=== PATIENT | male | born 1950 | race Caucasian/White ===

== ENCOUNTER 2017-02-23 15:13 | Inpatient (IN) ==
[2017-02-23] MEDS ORDERED: SODIUM CHLORIDE 0.9% 250 ML IV PRN (15:51)
--- NOTE | 2017-02-23 16:27 | Event Note ---
This is an addendum to the H&P dictated by nurse practitioner Robby Diehl NP. I have seen and examined the patient and discussed the assessment and plan with her. Mr. Suarez presents with symptomatic anemia and melena. Will admit him to inpatient start him on IV pantoprazole in addition to consulting GI and cardiology. He is on Eliquis and aspirin and these will be held. Serial H&H's every 4 hours.
[2017-02-23] MEDS ORDERED: PNEUMOCOCCAL VACCINE (13 VALENT) 0.5 ML SYRINGE IM ONE (16:41)
[2017-02-23] MEDS ORDERED: PANTOPRAZOLE INJ 80 MG in SODIUM CHLORIDE 0.9% 100 ML IV ONE (17:00)
--- NOTE | 2017-02-23 17:12 | Hospitalist History & Physical ---
Assessment and Plan (1) Anemia Status: Acute Assessment and plan: Admitted to [facility]. Pt. will receive a blood tranfusion. Serial h&hs. CBC in am. Consult GI. Vivien Jones for now. Current Visit: Yes (2) CAD (coronary artery disease) Status: Chronic Current Visit: Yes (3) Hypertension Status: Acute Assessment and plan: Restart home medications Current Visit: Yes (4) CHF (congestive heart failure) Status: Acute Assessment and plan: BNP. Restart Lasix p.o. IV lasix in between blood transfusion. Current Visit: Yes (5) Hyperlipidemia Status: Acute Assessment and plan: Lipid panel. Restart medications. Current Visit: Yes (6) Carotid artery stenosis Status: Acute Current Visit: Yes (7) Chronic kidney disease, stage III (moderate) Status: Acute Current Visit: Yes History of Present Illness Chief complaint: anemia History of present illness: Mr. Suarez is a 66 year old white male patient with a history of CAD, carotid stenosis, hypertension, CABG, hyperlipidemia, and CKD that was a direct admit from Dr. Michael's office. Patient was being seen in office today for a 6 week follow-up and was noted to have a low h&h. While at his appointment, he reported that he fell on Monday and passed out. At that time the patient recalled having a low blood pressure with a systolic pain in the 90s. Patient reported that he seen his doctor (Dr. Natarajan) on Monday and received changes to his medications. The amlodipine was discontinued and his Lasix was decreased. Today in Dr. Evans's office the patient still had low blood pressure but denied passing out since Monday. Lab work was obtained from the patient at the clinic and it was discovered after the patient went home that he had an H&H of 5.5 and 17.5. The patient was notified and told to report to the hospital for admission. During the interview the patient he reported that he been having issues with dark stool for the last 2 weeks. Patient stated that his stools have been black. Patient also reports being weak, dizzy, and lightheaded. Patient denies ever having black stools before. Patient reported that he is due for a colonoscopy. The last time he had one was 3 years ago. Patient reports being scoped in the past. Patient's case was discussed with Dr. Teixeira. Patient will receive blood transfusion. GI will be consulted to assist in the patient's care. Home Medications Medication Instructions Recorded Confirmed Type Allopurinol 200 mg PO DAILY 02/23/17 02/23/17 History Apixaban [Eliquis] 5 mg PO BID 02/23/17 02/23/17 History Aspirin 81 mg PO DAILY 02/23/17 02/23/17 History Atorvastatin [Lipitor] 80 mg PO BEDTIME 02/23/17 02/23/17 History Furosemide Tab [Lasix Tab] 40 mg PO DAILY 02/23/17 02/23/17 History Metoprolol Tartrate Tab [Lopressor 50 mg PO BID 02/23/17 02/23/17 History Tab] Pantoprazole Tab [Protonix Tab] 40 mg PO DAILY 02/23/17 02/23/17 History Polyethylene Glycol Powder 17 gm PO DAILY 02/23/17 02/23/17 History [Miralax] Valsartan 40 mg PO DAILY 02/23/17 02/23/17 History Allergies Allergy/AdvReac Type Severity Reaction Status Date / Time No Known Allergies Allergy Verified 02/23/17 16:27 Medical,Surgical,& Family Hx - Medical History Cardio: History of: Hypertension Endocrine: History of: Dyslipidemia Genitourinary: History of: Genitourinary Cancer - Family History Family History: Reports;: Family Heart Disease (mother and father) - Social History Smoking Status: Former smoker Frequency of Alcohol Use: Occasionally Type of Drug Use: None Marital Status: Lives With:: Spouse Functional capacity: independent ambulation - Constitutional Constitutional: Present: weakness. Absent: fever(s) - Cardiovascular Cardiovascular: Present: dyspnea on exertion, edema. Absent: chest pain at rest - Respiratory Respiratory: Present: dyspnea on exertion. Absent: hemoptysis - Gastrointestinal Gastrointestinal: Present: melena. Absent: nausea, vomiting - Genitourinary Genitourinary: Present: other (prostate cancer) - Neurological Neurological: Present: dizziness - Psychiatric Psychiatric: Absent: confusion - Endocrine Endocrine: Present: cold intolerance - Hematologic/Lymphatic Hematologic/Lymphatic: Present: easy bleeding Exam - Constitutional Vitals: Period Temp Pulse Resp BP Sys/Martin Pulse Ox Last 24 Hr 97.8 F 77 20 116/59 92 General appearance: no acute distress, over weight - Head Head exam: Present: normal inspection, normocephalic - Eye Eye exam: Present: EOMI. Absent: periorbital swelling Pupils: Present: CATHY. Absent: fixed - Neck Neck exam: Present: normal inspection. Absent: thyromegaly - Respiratory Respiratory exam: Present: clear to auscultation bilaterally. Absent: wheezes - Cardiovascular Cardiovascular exam: Present: regular rate and rhythm - GI/Abdominal GI/Abdominal exam: Present: normal bowel sounds, soft. Absent: tenderness - Extremities Exam Extremities exam: Present: normal capillary refill, full ROM, edema - Neurological Exam Neurological exam: Present: alert, oriented X3, normal gait - Psychiatric Psychiatric exam: Present: normal affect, normal mood - Skin Skin exam: Present: normal color, warm, dry Results - Labs CBC & BMP: 02/23/17 16:33 Labs: Labs from outside facility: WBC 11.3 RBC 2.07 Hgb 5.5 HCT 17.5 Platelets 403 Calcium 8.5 Creatinine 1.81 BUN 63 Glucose 104 MAG 2.5 NA 133 K4.4 CL 98 CO2 24
[2017-02-23 17:15] LABS: Basophils % 0.1 % (0.0-0.8); Eosinophils % 0.1 % (0.00-10.9); Immature Granulocytes % 0.6 %; Immature Granulocytes Absolute 0.05 #; Lymphocytes % 11.2 % (21.2-54.2); Mean Corpuscular HGB Conc 30.2 GM/DL (32-36); Mean Corpuscular Hemoglobin 27 PG (27-34); Mean Corpuscular Volume 90.5 FL (87-102); Mean Platelet Volume 11.8 FL (9.6-12.0); Monocytes # 1.1 10*3/uL (0.11-0.8); Monocytes % 12.5 % (1.7-12.7); NRBC # 0.22 10*3/uL; Neutrophils # 6.8 10*3/uL (1.4-7.4); Neutrophils % 75.5 % (38.7-73.9); Platelet Count 345 T/CUMM (130-400); Red Blood Count 1.79 MC/CUMM (3.8-5.5); Red Cell Distribution Width 19.5 % (9.3-17.3); White Blood Count 8.9 T/CUMM (4-12)
[2017-02-23 17:24] LABS: Hemoglobin 4.9 GM/DL (14.0-18.0)
[2017-02-23 17:25] LABS: Hematocrit 16.4 VOL% (42.0-52.0)
[2017-02-23] MEDS ORDERED: FUROSEMIDE 40 MG/4 ML VIAL IV ONE (17:33)
--- NOTE | 2017-02-23 17:42 | EKG Report ---
Stationary ECG Study [facility] Test Date: 02/23/2017 5:42:20 PM Pat Name: SARAH AN Department: Room: 424 Gender: M Local Area [employer] Administrator: ZAIRA : 1950 Requested by: Robby Diehl Order Number: [id number] Reading MD: DIANNE GUZMÁN Intervals [place] Rate: 88 P: 17 CA: 180 QRS: -40 QRSD: 161 T: 135 QT: 409 QTc: 455 Interpretive Statements SINUS RHYTHM WITH OCCASIONAL VENTRICULAR PREMATURE COMPLEXES MARKED LEFT AXIS DEVIATION LEFT BUNDLE BRANCH BLOCK Electronically Signed On 02-26-17 15:05:30 CDT by DIANNE GUZMÁN [email or web address]
[2017-02-23 18:09] LABS: Magnesium 2.4 MG/DL (1.8-2.4); Potassium 3.6 MMOL/L (3.5-5.1)
--- NOTE | 2017-02-23 18:52 | XRay Report ---
Portable chest. Indication: Congestive heart failure. No previous study. The cardiac silhouette is markedly enlarged. There has been a previous median sternotomy. Cardiac hardware is in satisfactory position. There is uncoiling of the thoracic aorta which often indicates chronic hypertension. The pulmonary vasculature is normal. The lung mercado are clear. No pneumothorax or pleural effusion. Unremarkable osseous structures. Impression: Cardiomegaly. PROCEDURE INTERPRETED AT [facility] DEPARTMENT OF RADIOLOGY Final Report Signed by: Dr. Reyna Morel
[2017-02-23] MEDS: PANTOPRAZOLE INJ 200 MG in SODIUM CHLORIDE 0.9% 250 ML IV SCH (18:59)
[2017-02-23] MEDS: ATORVASTATIN 80 MG TABLET PO SCH (20:41)
[2017-02-23 21:04] LABS: Hemoglobin 4.6 GM/DL (14.0-18.0)
[2017-02-23 21:05] LABS: Hematocrit 14.7 VOL% (42.0-52.0)
[2017-02-24 01:57] LABS: Hematocrit 17.4 VOL% (42.0-52.0); Hemoglobin 5.5 GM/DL (14.0-18.0)
[2017-02-24 04:57] LABS: Basophils % 0.2 % (0.0-0.8); Eosinophils % 0.1 % (0.00-10.9); Hematocrit 21.2 VOL% (42.0-52.0); Immature Granulocytes % 0.7 %; Immature Granulocytes Absolute 0.07 #; Lymphocytes # 1.9 10*3/uL (1.4-4.0); Lymphocytes % 18.8 % (21.2-54.2); Mean Corpuscular HGB Conc 32.5 GM/DL (32-36); Mean Corpuscular Hemoglobin 29 PG (27-34); Mean Platelet Volume 11.8 FL (9.6-12.0); Monocytes # 1.5 10*3/uL (0.11-0.8); Monocytes % 14.5 % (1.7-12.7); NRBC # 0.27 10*3/uL; Neutrophils # 6.6 10*3/uL (1.4-7.4); Neutrophils % 65.7 % (38.7-73.9); Platelet Count 330 T/CUMM (130-400); Red Cell Distribution Width 17.5 % (9.3-17.3); White Blood Count 10.1 T/CUMM (4-12)
[2017-02-24 05:02] LABS: Red Blood Count 2.41 MC/CUMM (3.8-5.5)
[2017-02-24 05:03] LABS: Hemoglobin 6.9 GM/DL (14.0-18.0)
[2017-02-24 05:15] LABS: Albumin 2.8 G/DL (3.4-5.0); Free T4 (Free Thyroxine) 1.5 NG/DL (0.76-1.46); Magnesium 2.3 MG/DL (1.8-2.4); Osmolality,Calculated 292.5 MOS/KG (273-304); Potassium 3.6 MMOL/L (3.5-5.1); Risk Ratio 2.43; Thyroid Stimulating Hormone 1.01 uIU/ml (0.358-3.74); Total Protein 5.5 G/DL (6.4-8.3); VLDL CHOLESTEROL 12.2 MG/DL
--- NOTE | 2017-02-24 07:30 | Physician Query Form ---
CLICK EDIT DOCUMENT TO SELECT QUERY ANSWER --> OK --> SIGN Maeve Montanez RN, CCDS Certified Clinical Tank Builder Supervisor W) [phone] (f) [phone] [email or web address] PROVIDERS: Make your selection(s) from the choices in EACH section by typing an "x" and enter comments in the comment section. Please use your independent medical judgment in providing your response. This request does not imply that any particular answer is desired or expected. CLINICAL INDICATORS: (Providers should not edit this section) Patient was admitted with melena, "weak", "dizzy", "lightheaded", BP of 91/55, "dark stool for the last 2 weeks", HH of 4.9/16.4 and the patient was given 2 units of blood. Based on the above, could you clarify which of the following conditions you are evaluating, treating, and/or monitoring? (x ) Blood loss anemia (x) acute ( ) chronic ( ) acute on chronic ( ) Acute blood loss anemia on baseline chronic anemia ( ) Acute blood loss anemia as a complication of a procedure ( ) Iron deficiency anemia not associated with blood loss ( ) Dilutional anemia due to IV fluids ( ) Anemia due to chemotherapy ( ) Anemia due to neoplastic disease ( ) Anemia due to chronic kidney disease ( ) Pernicious anemia ( ) Aplastic anemia ( ) Hemolytic anemia ( ) immune ( ) non-immune - please specify cause: ( ) Anemia due to other condition, please specify: ( ) Clinically unable to determine COMMENTS: PLEASE ALSO DOCUMENT RESPONSE IN PROGRESS NOTES AND/OR DISCHARGE SUMMARY Use of terms such as suspected, likely, or probable (associated with a specific diagnosis that is being evaluated, monitored, or treated as if it exists) are acceptable and can be restated in the discharge summary if not ruled out. MTDD
--- NOTE | 2017-02-24 07:31 | Physician Query Form ---
CLICK EDIT DOCUMENT TO SELECT QUERY ANSWER --> OK --> SIGN Maeve Montanez RN, CCDS Certified Clinical Metal Casting Trades Worker W) [phone] (f) [phone] [email or web address] PROVIDERS: Make your selection(s) from the choices in EACH section by typing an "x" and enter comments in the comment section. Please use your independent medical judgment in providing your response. This request does not imply that any particular answer is desired or expected. CLINICAL INDICATORS: (Providers should not edit this section) Patient was admitted with melena, Acute CHF is mentioned, BNP of 1297#, CKD stage III, and the patient was treated with IV / PO Lasix. Please provide further specificity regarding CHF. ACUITY: ( ) Acute ( ) Chronic ( ) Acute on Chronic (x ) Clinically unable to determine TYPE: ( ) Systolic (HFrEF - heart failure with reduced systolic function/EF) ( ) Diastolic (HFpEF - heart failure with preserved systolic function/EF) ( ) Combined Systolic/Diastolic ( ) Other, please specify: ( x) Clinically unable to determine ( ) The patient does NOT have CHF COMMENTS: PLEASE ALSO DOCUMENT RESPONSE IN PROGRESS NOTES AND/OR DISCHARGE SUMMARY Use of terms such as suspected, likely, or probable (associated with a specific diagnosis that is being evaluated, monitored, or treated as if it exists) are acceptable and can be restated in the discharge summary if not ruled out. MTDD
[2017-02-24 08:30] LABS: Hematocrit 21.1 VOL% (42.0-52.0); Hemoglobin 6.6 GM/DL (14.0-18.0)
[2017-02-24] MEDS: VALSARTAN 80 MG TABLET PO SCH ×2 (08:38→13:34)
[2017-02-24] MEDS ORDERED: SODIUM CHLORIDE 0.9% 250 ML IV PRN (08:40)
[2017-02-24] MEDS: FUROSEMIDE 40 MG TABLET PO SCH (09:17)
[2017-02-24] MEDS: ALLOPURINOL 100 MG TABLET PO SCH (09:17)
--- NOTE | 2017-02-24 12:08 | Hospitalist Progress Note ---
Assessment and Plan - Time spent with patient Time spent with patient: Greater than 30 minutes (1) Acute blood loss anemia Status: Acute Assessment and plan: Secondary to GI bleed. GI consult. Continue transfusions for Hg >9. 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 Cardiology consulted for further recommendations. Current Visit: Yes (3) CAD (coronary artery disease) Status: Chronic Assessment and plan: Holding antiplatelets. We will continue Lipitor. Current Visit: Yes Hospitalist: Subjective Interval history: No complaints. Stool continues to remain melanotic. Exam - Constitutional Vitals: Period Temp Pulse Resp BP Sys/Martin Pulse Ox Last 24 Hr 97.8 F-98.6 F 77-97 16-20 91-129/51-67 92-98 General appearance: no acute distress - Head Head exam: Present: normocephalic, atraumatic - Eye Eye exam: Present: EOMI Pupils: Present: CATHY - ENT ENT exam: Present: normal exam - Neck Neck exam: Present: normal inspection - Respiratory Respiratory exam: Present: clear to auscultation bilaterally. Absent: rhonchi, wheezes - Cardiovascular Cardiovascular exam: Present: regular rate and rhythm. Absent: gallop, rubs, systolic murmur - GI/Abdominal GI/Abdominal exam: Present: normal bowel sounds, soft. Absent: distended, firm , guarding, tenderness, rebound - Extremities Exam Extremities exam: Present: normal inspection. Absent: calf tenderness, edema Results - Labs CBC & BMP: 02/24/17 08:13 02/24/17 04:20 Lab Results: I have reviewed the past 24 hour labs
[2017-02-24 12:18] LABS: Bilirubin,Total 1.1 MG/DL (0.2-1.0)
--- NOTE | 2017-02-24 12:40 | Gastrointestinal Consult Note ---
Assessment and Plan (1) Gastrointestinal hemorrhage with melena Status: Acute Assessment and plan: This patient was previously scoped back in 2013 when he was last placed on Eliquis and was having guaiac positive stools and hematocrit decreased down to 34%. His hematocrit is down to 14% this admission is now getting his fourth unit of blood. Unfortunately he cannot be taken to endoscopy this morning as he is already eaten solid food. We need to repeat the upper endoscopy on Monday in order to assess for an additional bleeding source and double check that this is not a cancer that is developed since last the patient was scoped in 2013. Helicobacter pylori negative gastritis was noted at that time, and the patient is been treated with Protonix twice daily ever since. We will look for AVMs and other bleeding sources as well as ruling out peptic ulcer disease and looking for cancer that might explain his level of anemia. I do not feel that with the colonoscopy done as recently as 2013 that is necessary to repeat the colonoscopy at this time. I will arrange for my on-call coverage to look in on this patient over the weekend to make sure he does not require emergency endoscopy in the interim. Current Visit: Yes (2) Personal history of colonic polyps Status: Acute Assessment and plan: The patient has a history of adenomas in the ascending and sigmoid regions of his colon. Blood loss for the rectum is noted to be black consistent with upper GI bleeding. I do not anticipate requiring a colonoscopy at this time, but upper endoscopy will be repeated on 02/27/17 at around 0700 in the morning. Current Visit: Yes (3) Acute posthemorrhagic anemia Status: Acute Assessment and plan: Again, we are arranging for upper endoscopy to occur on 02/27/17 at 7 AM. The patient should be given Protonix in the interim twice daily, start MiraLAX to help out with his underlying constipation. Transfuse if the patient's hematocrit drops below your parameters. Risks of the procedure include but are not limited to: Bleeding, infection, perforation, cardiac and pulmonary compromise. Observe for stability over the weekend. Current Visit: Yes History of Present Illness Chief complaint: 2 weeks worth of melena, HCT of 14%, history of gastritis/ colon polyps History of present illness: Mr. Suarez is a 66 year old male who has a history of black stools over the last 2 weeks or so. He has some mild epigastric tenderness and is complaining mostly of constipation. He states that he has approximately 2-3 bowel movements per day which have been dark to black with increasing fatigue and syncope that occurred 5 days ago on Monday. When he came into the hospital initially on 02/23/17 he was noted to have a hematocrit of 16.4 with a hemoglobin of 4.9. Unfortunately this dropped down to 14.7 and 4.6 on midnight this morning and is spontaneously up to 21.2%. He is gotten 3 unit transfused but is due to get another 1 unit for a total of 4. His hematocrit is currently up to 21.1% and he is feeling a good deal better. He has not had any vomiting he has poor appetite but only minimal nausea at this time. He has been using MiraLAX recently at home for his underlying constipation. Is been diagnosed by Dr. Avalos is having prostate cancer and has undergone 5 radiation treatments and is now getting hormonal therapy. This patient has been referred to me back in February 2014 when he had guaiac positive stools in addition to a decreased hematocrit to 34% at that time, interestingly this was also initiated after the patient had started on Eliquis similar to this visit. The Eliquis had to be stopped and it is only been restarted recently. He underwent both EGD on and colonoscopy on 03/17/14. EGD demonstrated diffuse gastritis with erosive qualities down in the antrum and erosive duodenitis with a 2 mm erosion, incidental duodenal diverticulum noted, no gross evidence of esophagitis. The colonoscopy demonstrated 3 polyps in the ascending and one polyp in the sigmoid there were all removed by hot biopsy, diverticulosis was noted in the left side of the colon it was thought to be colitis present but this was likely just prep artifact as only normal tissue was seen aside from the adenomas. It is the gastritis that is likely the source the patient's current bleeding given the black stool seen on physical examination and per the patient's history. We will check the patient's upper endoscopy again on Monday given the gravity of the blood loss and reaffirmed but no cancer is present nor peptic ulcer disease. The patient had been followed in [facility] clinic for number of years after his left-sided CEA surgery done by Dr. Hampton at [facility] and triple-vessel CABG done by Dr. Onofre at [facility]. The patient has a history of an ejection fraction of only 25% and had an AICD implanted by Dr. Gonzalez in the past. Interestingly , the patient has been on Protonix 40 mg twice daily since last scoped in 2013 by report. Home Medications Medication Instructions Recorded Confirmed Type Allopurinol 200 mg PO DAILY 02/23/17 02/23/17 History Apixaban [Eliquis] 5 mg PO BID 02/23/17 02/23/17 History Aspirin 81 mg PO DAILY 02/23/17 02/23/17 History Atorvastatin [Lipitor] 80 mg PO BEDTIME 02/23/17 02/23/17 History Furosemide Tab [Lasix Tab] 40 mg PO DAILY 02/23/17 02/23/17 History Metoprolol Tartrate Tab [Lopressor 50 mg PO BID 02/23/17 02/23/17 History Tab] Pantoprazole Tab [Protonix Tab] 40 mg PO DAILY 02/23/17 02/23/17 History Polyethylene Glycol Powder 17 gm PO DAILY 02/23/17 02/23/17 History [Miralax] Valsartan 40 mg PO DAILY 02/23/17 02/23/17 History Allergies Allergy/AdvReac Type Severity Reaction Status Date / Time No Known Allergies Allergy Verified 02/23/17 16:27 Medical,Surgical,& Family Hx - Medical History Cardio: History of: Hypertension Endocrine: History of: Dyslipidemia Genitourinary: History of: Genitourinary Cancer - Family History Family History: Reports;: Family Heart Disease (mother and father) - Social History Smoking Status: Former smoker Frequency of Alcohol Use: Occasionally Type of Drug Use: None Review of systems: Constitutional: Denies fever, chills, and vomiting but some nausea noted Eyes: Denies dry eyes, and scleral icterus HENT: Denies headaches Cardiovascular: Denies acute chest pain and claudication Respiratory: Mild shortness of breath, without wheezing, difficulty breathing, and also denies cough Gastrointestinal: As noted in the HPI Genitourinary: Denies dysuria and hematuria Neurologic: Denies vision loss, and loss of sensation Musculoskeletal: Denies joint swelling, however he does have some joint stiffness, and muscular weakness Psychiatric: Denies depression and parmjit symptoms Heme-Lymph: Denies easy bruising, lymph node enlargement or tenderness, night sweats, excessive bleeding Allergies-immunologic: Denies pruritus and rhinorrhea Exam - Constitutional Vitals: Period Temp Pulse Resp BP Sys/Martin Pulse Ox Last 24 Hr 97.8 F-98.6 F 77-97 16-20 91-129/51-67 92-98 General appearance: no acute distress Exam: Constitutional: Well-developed, well-nourished, alert, and in no acute distress Head and face: Head: Normocephalic atraumatic Eyes: Conjunctiva without injection, no gross scleral icterus, pupils equal and round bilaterally Ears: Intact to conversation in both ears Nose: External appearance is normal, nares patent Mouth: Oral mucous membranes moist without erythema dentition noted to be without erosion in the lower arch, upper arch is noted to be edentulous Neck: Normal appearance, no masses or tenderness, trachea midline Thyroid: Gland midline and appropriate size for age Respiratory: Normal respiratory effort, clear to auscultation without wheezes, rhonchi or rales Cardiovascular: Regular rate and rhythm, normal S1, S2, the exam is without rubs, murmurs or gallops. Gastrointestinal: Nontender to palpation, in any quadrant, normal active bowel sounds, tone normal without rigidity or guarding, no masses present, no hepatomegaly, no spleen tip felt. Small internal and external hemorrhoids are palpated, stool was chestnut brown and grossly guaiac positive. Lymphatic: Neck without adenopathy, axilla without lymphadenopathy present Musculoskeletal: Right and left lower extremities with trace evidence of edema Skin and subcutaneous tissue: No rashes or ulcerations noted, normal skin turgor, digits and nails without clubbing/cyanosis/deformities. Neurologic: The patient is grossly oriented to person place and time, cranial nerves show tongue movements are normal with normal tongue extrusion midline, light touch sensation is intact. Psychiatric: No hallucinations or delusions are present, does not appear depressed Results - Labs CBC & BMP: 02/24/17 08:13 02/24/17 04:20
--- NOTE | 2017-02-24 14:58 | Cardiology Consult Note ---
Gianfranco Fam Vanessa, RN, am scribing for, and in the presence of, Tripp Santos MD 14:58. Assessment and Plan - Time spent with patient Time spent with patient: Greater than 30 minutes (due to assessment, planning, documentation, and medication review) (1) Carotid artery stenosis Status: Chronic Assessment and plan: SEE PLAN OF CARE LISTED BELOW. Current Visit: Yes (2) Chronic kidney disease, stage III (moderate) Status: Chronic Assessment and plan: SEE PLAN OF CARE LISTED BELOW. Current Visit: Yes (3) Hyperlipidemia Status: Chronic Assessment and plan: SEE PLAN OF CARE LISTED BELOW. Current Visit: Yes (4) Hypertension Status: Chronic Assessment and plan: SEE PLAN OF CARE LISTED BELOW. Current Visit: Yes (5) CAD (coronary artery disease) Status: Chronic Assessment and plan: SEE PLAN OF CARE LISTED BELOW. Current Visit: Yes (6) Acute blood loss anemia Status: Acute Assessment and plan: SEE PLAN OF CARE LISTED BELOW. Current Visit: Yes (7) CHF (congestive heart failure) Status: Chronic Assessment and plan: SEE PLAN OF CARE LISTED BELOW. Current Visit: Yes (8) Chronic anticoagulation Status: Chronic Assessment and plan: SEE PLAN OF CARE LISTED BELOW. Current Visit: Yes (9) Personal history of colonic polyps Status: Chronic Assessment and plan: SEE PLAN OF CARE LISTED BELOW. Current Visit: Yes History of Present Illness - Data of Consult Patient: known to practice within the last 3 years Consult date: 02/24/17 Requesting Physician: Kelly Teixeira - Consult Narrative Reason for consult: GI bleeding currently on antiplatelet therapy History of present illness: PRIMARY REFERENCE LIBRARIAN: DR. EVANS PCP: DR. GOLDSTEIN CARDIOLOGY CONSULT NOTE: GI BLEED, ANTIPLATELET THERAPY Mr. Suarez is a 66 year old male with risk factors significant for: Age, hypertension, dyslipidemia, personal history and family history of premature CAD , and he is a former smoker. Past medical history includes apical thrombus, carotid artery disease, and he has had previous carotid artery endarterectomy. He also has had previous coronary artery bypass grafting, congestive heart failure, and ischemic cardiomyopathy with most recent ejection fraction of 13% and is status post AICD implant per Dr. Gonzalez. Most recent echocardiogram on December 29 with severely decreased global systolic function and ejection fraction 13%, hypokinesis of inferior segment and akinesis of anteroseptal segment, mild to moderate MR, TR, and aortic regurgitation. He was seen by Dr. Dr. Burns in clinic on February 23 complaining of weakness, dyspnea on exertion, and recent syncopal episode after a fall with reported systolic BP at home in the 90s. Prior to visit, he had been seen by Dr. Goldstein on Monday and amlodipine was discontinued with a decrease in Lasix dosage. His ICD was interrogated by Dr. Gomez at this time and noted to have normal DDD function, no atrial fib, and occasional NSVT's. Patient was also noted to have worsening chest congestion over the past month with a decrease in his activity and average heart rate increasing in the same time. Lab work drawn the day revealed H&H 5.5/17.5, creatinine 1.8, potassium 4.4, BNP 1260. He was directly admitted from Dr. Evans's office to [facility] floor per hospital medicine service. Since then, patient reports he has also been experiencing melena or approximately the past 2 weeks with his associated weakness, dizziness, and lightheadedness. Blood work drawn after admission, and repeat H&H 4.9/16.4. Patient denies history of prior GI bleeding. He has received 2 units PRBCs, and is receiving 2 additional units PRBCs for a total of 4 units now as his repeat H&H this morning was 6.6/21.1. Cardiology consulted as patient is on Eliquis therapy for history of LV thrombus and now presents with GI bleeding. Gastroenterology has also been consulted. Last dose of Eliquis was February 23, and antiplatelet is currently being held. Patient is awake and alert this morning in no acute distress. No active chest discomfort or shortness of breath. He continues to have melena and some epigastric tenderness. He has recently also been diagnosed with prostate cancer , has undergone 5 radiation treatments with current hormone therapy, and complains he has had some constipation recently. It is noted in the past that patient has previously taken Eliquis in 2013, had positive hemoccults, and EGD per Dr. Hernandez showed diffuse gastritis with erosive qualities but no evidence of esophagitis. C-scope with colon polyps and diverticulosis of the left colon. Patient to be set up EGD on Monday. SBP 130-145 mmHg. 12 lead EKG with sinus rhythm, rare PVC, chronic LBBB. Chest x-ray without ivy pulmonary edema. This patient has a history of melena for the past several weeks with a significant drop in his hematocrit. He is on Eliquis for an LV apical thrombus. He has a history of coronary disease with an ischemic cardiomyopathy and our plan at this point will be to stop his Eliquis and aspirin as outlined by Dr. Evans and continue close observation and follow-up. CC: Kelly Teixeira MD - Home Medications and Allergies Home Medications: Home Medications Medication Instructions Recorded Confirmed Type Allopurinol 200 mg PO DAILY 02/23/17 02/23/17 History Apixaban [Eliquis] 5 mg PO BID 02/23/17 02/23/17 History Aspirin 81 mg PO DAILY 02/23/17 02/23/17 History Atorvastatin [Lipitor] 80 mg PO BEDTIME 02/23/17 02/23/17 History Furosemide Tab [Lasix Tab] 40 mg PO DAILY 02/23/17 02/23/17 History Metoprolol Tartrate Tab [Lopressor 50 mg PO BID 02/23/17 02/23/17 History Tab] Pantoprazole Tab [Protonix Tab] 40 mg PO DAILY 02/23/17 02/23/17 History Polyethylene Glycol Powder 17 gm PO DAILY 02/23/17 02/23/17 History [Miralax] Valsartan 40 mg PO DAILY 02/23/17 02/23/17 History Allergies/Adverse Reactions: Allergies Allergy/AdvReac Type Severity Reaction Status Date / Time No Known Allergies Allergy Verified 02/23/17 16:27 - Constitutional Constitutional: Present: as per HPI - EENT Eyes: Present: as per HPI Ears: Present: as per HPI Nose, mouth and throat: Present: as per HPI - Cardiovascular Cardiovascular: Present: as per HPI - Respiratory Respiratory: Present: as per HPI - Gastrointestinal Gastrointestinal: Present: as per HPI - Genitourinary Genitourinary: Present: as per HPI - Musculoskeletal Musculoskeletal: Present: as per HPI - Neurological Neurological: Present: as per HPI - Psychiatric Psychiatric: Present: as per HPI - Endocrine Endocrine: Present: as per HPI - Hematologic/Lymphatic Hematologic/Lymphatic: Present: as per HPI Medical,Surgical,& Family Hx - Medical History Cardio: History of: Cerebrovascular Disease, CHF, CAD, Hypertension Endocrine: History of: Dyslipidemia No history of: Thyroid Disorder Genitourinary: History of: Genitourinary Cancer Gastrointestinal: History of: GERD, Gastrointestinal Bleed, Polyps, GI Problems Hematology: History of: Anemia, Bleeding Problems, Clotting Problems No history of: Blood Transfusion Reaction - Surgical History Cardiac Surgeries: Sugical HX of: Cardiac Catheterization, Cardiac Surgery, Carotid Endarterectomy HEENT Surgeries: Surgical HX of: Carotid Endarterectomy Abdominal Surgeries: Surgical HX of: Colonoscopy, EGD - Family History Family History: Reports;: Family Heart Disease (mother and father) - Social History Smoking Status: Former smoker Frequency of Alcohol Use: Occasionally Type of Drug Use: None Physical Examination Vital Signs Temp Pulse Resp BP Pulse Ox 97.8 F 77 20 116/59 92 L 02/23/17 15:56 02/23/17 15:56 02/23/17 15:56 02/23/17 15:56 02/23/17 15:56 General: Present: Other (overweight) HEENT: Present: PERRL, Normocephaly, Mucus Membranes Moist Neck: Present: Supple Neck, Midline Trachea, No JVD/HJR, No Masses, No Bruit Cardiac: Present: Reg Rate and Rhythm, No Murmur Lungs: Present: Clear Ascult./Percussion, No Wheeze, Rales, Rhonchi Neuro: Present: Grossly Intact. Absent: Numbness, Weakness, Resting Tremor, Essential Tremor Abdomen: Present: Soft, Active Bowel Sounds, No Masses, No Pulsations/Bruits, Tender (mild epigastric tenderness). Absent: Firm Skin: Present: Clear. Absent: Rash, Suspicious Lesions Musculoskeletal: Present: Normal Range of Motion Extremities: Present: No Clubbing, No Cyanosis, Edema (trace BLE's, non pitting) , Capillary Refill (normal) Result/EKG - Labs CBC & BMP: 02/24/17 08:13 02/24/17 04:20 Lab Results: I have reviewed the past 24 hour labs Labs: Laboratory Results - last 24 hr 02/23/17 02/23/17 02/23/17 16:33 16:33 16:33 WBC 8.9 RBC 1.79 L Hgb 4.9 L* Hct 16.4 L* MCV 90.5 MCH 27 MCHC 30.2 L RDW 19.5 H Plt Count 345 MPV 11.8 Neut % (Auto) 75.5 H Lymph % (Auto) 11.2 L Cloud % (Auto) 12.5 Eos % (Auto) 0.1 Baso % (Auto) 0.1 Neut # (Auto) 6.8 Lymph # (Auto) 1.0 L Cloud # (Auto) 1.1 H Eos # (Auto) 0.0 Baso # (Auto) 0.0 Immature Gran % 0.6 Nucleated RBC % 2.5 Immature Gran # 0.05 Nucleated RBCs # 0.22 Sodium 136 Potassium 3.6 Chloride 100 Carbon Dioxide 24 Anion Gap 15.6 H BUN 63 H Creatinine 1.90 H GFR Calculation 42 BUN/Creatinine Ratio 33.00 H Glucose 96 Calculated Osmolality 289.0 Calcium 8.0 L Magnesium 2.4 Total Bilirubin AST ALT Alkaline Phosphatase B-Natriuretic Peptide Total Protein Albumin Globulin Albumin/Globulin Ratio Triglycerides Cholesterol LDL Cholesterol VLDL Cholesterol HDL Cholesterol Heart Disease Risk Ratio Free T4 TSH 3rd Generation Blood Type A POSITIVE Antibody Screen Crossmatch Blood Bank Comment 02/23/17 02/23/17 02/23/17 16:33 18:30 20:47 WBC RBC Hgb 4.6 L* Hct 14.7 L* MCV MCH MCHC RDW Plt Count MPV Neut % (Auto) Lymph % (Auto) Cloud % (Auto) Eos % (Auto) Baso % (Auto) Neut # (Auto) Lymph # (Auto) Cloud # (Auto) Eos # (Auto) Baso # (Auto) Immature Gran % Nucleated RBC % Immature Gran # Nucleated RBCs # Sodium Potassium Chloride Carbon Dioxide Anion Gap BUN Creatinine GFR Calculation BUN/Creatinine Ratio Glucose Calculated Osmolality Calcium Magnesium Total Bilirubin AST ALT Alkaline Phosphatase B-Natriuretic Peptide 1297 H Total Protein Albumin Globulin Albumin/Globulin Ratio Triglycerides Cholesterol LDL Cholesterol VLDL Cholesterol HDL Cholesterol Heart Disease Risk Ratio Free T4 TSH 3rd Generation Blood Type A POSITIVE Antibody Screen Negative Crossmatch See Detail Blood Bank Comment 02/24/17 02/24/17 02/24/17 00:23 04:20 04:21 WBC 10.1 RBC 2.41 L D Hgb 5.5 L* 6.9 L D Hct 17.4 L* D 21.2 L MCV 88.0 MCH 29 MCHC 32.5 RDW 17.5 H Plt Count 330 MPV 11.8 Neut % (Auto) 65.7 Lymph % (Auto) 18.8 L Cloud % (Auto) 14.5 H Eos % (Auto) 0.1 Baso % (Auto) 0.2 Neut # (Auto) 6.6 Lymph # (Auto) 1.9 Cloud # (Auto) 1.5 H Eos # (Auto) 0.0 Baso # (Auto) 0.0 Immature Gran % 0.7 Nucleated RBC % 2.7 Immature Gran # 0.07 Nucleated RBCs # 0.27 Sodium 139 Potassium 3.6 Chloride 103 Carbon Dioxide 24 Anion Gap 15.6 H BUN 56 H Creatinine 1.70 H GFR Calculation 48 BUN/Creatinine Ratio 32.00 H Glucose 105 Calculated Osmolality 292.5 Calcium 8.0 L Magnesium 2.3 Total Bilirubin 1.10 AST 214 H ALT 164 H Alkaline Phosphatase 78 B-Natriuretic Peptide Total Protein 5.5 L Albumin 2.8 L Globulin 2.7 Albumin/Globulin Ratio 1.0 L Triglycerides 61 Cholesterol 73 LDL Cholesterol 45.0 VLDL Cholesterol 12.2 HDL Cholesterol 30 L Heart Disease Risk Ratio 2.43 Free T4 1.50 H TSH 3rd Generation 1.010 Blood Type Antibody Screen Crossmatch Blood Bank Comment 02/24/17 02/24/17 04:21 08:13 WBC RBC Hgb 6.6 L Hct 21.1 L MCV MCH MCHC RDW Plt Count MPV Neut % (Auto) Lymph % (Auto) Cloud % (Auto) Eos % (Auto) Baso % (Auto) Neut # (Auto) Lymph # (Auto) Cloud # (Auto) Eos # (Auto) Baso # (Auto) Immature Gran % Nucleated RBC % Immature Gran # Nucleated RBCs # Sodium Potassium Chloride Carbon Dioxide Anion Gap BUN Creatinine GFR Calculation BUN/Creatinine Ratio Glucose Calculated Osmolality Calcium Magnesium Total Bilirubin AST ALT Alkaline Phosphatase B-Natriuretic Peptide Total Protein Albumin Globulin Albumin/Globulin Ratio Triglycerides Cholesterol LDL Cholesterol VLDL Cholesterol HDL Cholesterol Heart Disease Risk Ratio Free T4 TSH 3rd Generation Blood Type Cancelled Antibody Screen Cancelled Crossmatch See Detail Blood Bank Comment Cancelled - Diagnostic Findings Procedure: Chest x-ray: image reviewed by me, report reviewed by me - EKG EKG results: interpreted by me, no acute changes EKG shows: sinus rhythm Tom Fam Wesley, MD, personally performed the services described in this documentation, ascribed by Kalyn Medel RN in my presence, and it is both accurate and complete [id number] .
[2017-02-24 16:34] LABS: Hematocrit 26.2 VOL% (42.0-52.0)
[2017-02-24 16:36] LABS: Hemoglobin 8.6 GM/DL (14.0-18.0)
[2017-02-24 21:21] LABS: Hematocrit 24.6 VOL% (42.0-52.0); Hemoglobin 8.1 GM/DL (14.0-18.0)
[2017-02-24] MEDS: ATORVASTATIN 80 MG TABLET PO SCH (21:22)
[2017-02-25 06:21] LABS: Basophils % 0.4 % (0.0-0.8); Eosinophils # 0.1 10*3/uL (0.0-0.87); Eosinophils % 0.9 % (0.00-10.9); Hematocrit 23.5 VOL% (42.0-52.0); Hemoglobin 7.6 GM/DL (14.0-18.0); Immature Granulocytes % 0.9 %; Immature Granulocytes Absolute 0.07 #; Lymphocytes # 0.9 10*3/uL (1.4-4.0); Lymphocytes % 11.1 % (21.2-54.2); Mean Corpuscular HGB Conc 32.3 GM/DL (32-36); Mean Corpuscular Hemoglobin 28 PG (27-34); Mean Corpuscular Volume 87.4 FL (87-102); Mean Platelet Volume 11.4 FL (9.6-12.0); Monocytes # 1.1 10*3/uL (0.11-0.8); Monocytes % 14.6 % (1.7-12.7); NRBC # 0.26 10*3/uL; Neutrophils # 5.6 10*3/uL (1.4-7.4); Neutrophils % 72.1 % (38.7-73.9); Platelet Count 271 T/CUMM (130-400); Red Blood Count 2.69 MC/CUMM (3.8-5.5); Red Cell Distribution Width 17.1 % (9.3-17.3); White Blood Count 7.7 T/CUMM (4-12)
[2017-02-25 07:13] LABS: Calcium 8.1 MG/DL (8.5-10.1); Magnesium 2.3 MG/DL (1.8-2.4); Osmolality,Calculated 287.3 MOS/KG (273-304); Potassium 3.7 MMOL/L (3.5-5.1)
[2017-02-25] MEDS: PANTOPRAZOLE INJ 200 MG in SODIUM CHLORIDE 0.9% 250 ML IV SCH ×2 (07:46→20:26)
[2017-02-25] MEDS ORDERED: SODIUM CHLORIDE 0.9% 250 ML IV PRN (08:33)
--- NOTE | 2017-02-25 08:41 | Cardiology Progress Note ---
Assessment and Plan (1) Carotid artery stenosis Status: Chronic Assessment and plan: SEE PLAN OF CARE LISTED BELOW. Current Visit: Yes (2) Chronic kidney disease, stage III (moderate) Status: Chronic Assessment and plan: SEE PLAN OF CARE LISTED BELOW. Current Visit: Yes (3) Hyperlipidemia Status: Chronic Assessment and plan: SEE PLAN OF CARE LISTED BELOW. Current Visit: Yes (4) Hypertension Status: Chronic Assessment and plan: SEE PLAN OF CARE LISTED BELOW. Current Visit: Yes (5) CAD (coronary artery disease) Status: Chronic Assessment and plan: SEE PLAN OF CARE LISTED BELOW. Current Visit: Yes (6) Acute blood loss anemia Status: Acute Assessment and plan: SEE PLAN OF CARE LISTED BELOW. Current Visit: Yes (7) CHF (congestive heart failure) Status: Chronic Assessment and plan: SEE PLAN OF CARE LISTED BELOW. Current Visit: Yes (8) Chronic anticoagulation Status: Chronic Assessment and plan: SEE PLAN OF CARE LISTED BELOW. Current Visit: Yes (9) Personal history of colonic polyps Status: Chronic Assessment and plan: SEE PLAN OF CARE LISTED BELOW. Current Visit: Yes Cardiology - PN: Subj Interval history: Patient's counts continue dropping. He is off of his Eliquis and we are following his counts. Cardiac berumen he is stable without complaints related to orthopnea or PND. Exam (Progress Note) - Constitutional Vitals: Period Temp Pulse Resp BP Sys/Martin Pulse Ox Last 24 Hr 97.4 F-98.9 F 86-99 18-20 101-145/51-79 95-99 Exam: General:no acute distress. alert and oriented, mood and affect are normal HEENT: no new lesions, sclerae are clear, mouth and pharynx benign Neck: supple, trachea midline, no JVD noted Lungs: no rales ronchi or wheeze is noted. pt comfortable without accesory muscle use to assist with breathing CV: RRR no murmur rub or gallop is noted. Abd: soft and nontender, BSNA, no masses. Ext: no cyanosis, clubbing or edema Neuro: grossly intact without focal neurologic deficit. Result/EKG - Labs CBC & BMP: 02/25/17 04:27 02/25/17 04:26 Labs: Laboratory Results - last 24 hr 02/24/17 02/24/17 02/24/17 04:20 04:21 16:14 WBC RBC Hgb 8.6 L D Hct 26.2 L MCV MCH MCHC RDW Plt Count MPV Neut % (Auto) Lymph % (Auto) Gillespie % (Auto) Eos % (Auto) Baso % (Auto) Neut # (Auto) Lymph # (Auto) Gillespie # (Auto) Eos # (Auto) Baso # (Auto) Immature Gran % Nucleated RBC % Immature Gran # Nucleated RBCs # Sodium Potassium Chloride Carbon Dioxide Anion Gap BUN Creatinine GFR Calculation BUN/Creatinine Ratio Glucose Calculated Osmolality Calcium Magnesium Total Bilirubin 1.10 H Blood Type Cancelled Antibody Screen Cancelled Crossmatch See Detail Blood Bank Comment Cancelled 02/24/17 02/25/17 02/25/17 20:24 04:26 04:27 WBC 7.7 RBC 2.69 L Hgb 8.1 L 7.6 L Hct 24.6 L 23.5 L MCV 87.4 MCH 28 MCHC 32.3 RDW 17.1 Plt Count 271 MPV 11.4 Neut % (Auto) 72.1 Lymph % (Auto) 11.1 L Gillespie % (Auto) 14.6 H Eos % (Auto) 0.9 Baso % (Auto) 0.4 Neut # (Auto) 5.6 Lymph # (Auto) 0.9 L Gillespie # (Auto) 1.1 H Eos # (Auto) 0.1 Baso # (Auto) 0.0 Immature Gran % 0.9 Nucleated RBC % 3.4 Immature Gran # 0.07 Nucleated RBCs # 0.26 Sodium 141 Potassium 3.7 Chloride 105 Carbon Dioxide 27 Anion Gap 12.7 BUN 35 H Creatinine 1.30 GFR Calculation 66 BUN/Creatinine Ratio 26.00 H Glucose 88 Calculated Osmolality 287.3 Calcium 8.1 L Magnesium 2.3 Total Bilirubin Blood Type Antibody Screen Crossmatch Blood Bank Comment
[2017-02-25] MEDS: ALLOPURINOL 100 MG TABLET PO SCH (09:22)
[2017-02-25] MEDS: VALSARTAN 80 MG TABLET PO SCH ×2 (09:23→12:07)
[2017-02-25] MEDS: FUROSEMIDE 40 MG TABLET PO SCH (09:23)
--- NOTE | 2017-02-25 10:04 | Hospitalist Progress Note ---
Assessment and Plan - Time spent with patient Time spent with patient: Greater than 30 minutes (1) Acute blood loss anemia Status: Acute Assessment and plan: Secondary to GI bleed. GI consult. Continue transfusions for Hg >9. We will transfuse 2 units. 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 Cardiology consulted for further recommendations. Current Visit: Yes (3) CAD (coronary artery disease) Status: Chronic Assessment and plan: Holding antiplatelets. We will continue Lipitor. Current Visit: Yes Hospitalist: Subjective Interval history: No complaints overnight events. Patient's hemoglobin was 7.6 this morning. He denies having any bowel movement since admission. Exam - Constitutional Vitals: Period Temp Pulse Resp BP Sys/Martin Pulse Ox Last 24 Hr 97.4 F-98.9 F 86-99 18-20 101-145/54-79 95-99 General appearance: no acute distress - Head Head exam: Present: normocephalic, atraumatic - Eye Eye exam: Present: EOMI Pupils: Present: CATHY - ENT ENT exam: Present: normal exam - Neck Neck exam: Present: normal inspection - Respiratory Respiratory exam: Present: clear to auscultation bilaterally. Absent: rhonchi, wheezes - Cardiovascular Cardiovascular exam: Present: regular rate and rhythm. Absent: gallop, rubs, systolic murmur - GI/Abdominal GI/Abdominal exam: Present: normal bowel sounds, soft. Absent: distended, firm , guarding, tenderness, rebound - Extremities Exam Extremities exam: Present: normal inspection. Absent: calf tenderness, edema Results - Labs CBC & BMP: 02/25/17 04:27 02/25/17 04:26 Lab Results: I have reviewed the past 24 hour labs
[2017-02-25] MEDS: ATORVASTATIN 80 MG TABLET PO SCH (20:26)
[2017-02-26 05:30] LABS: Basophils % 0.3 % (0.0-0.8); Eosinophils # 0.1 10*3/uL (0.0-0.87); Eosinophils % 1.4 % (0.00-10.9); Hematocrit 27.4 VOL% (42.0-52.0); Hemoglobin 8.8 GM/DL (14.0-18.0); Immature Granulocytes % 0.3 %; Immature Granulocytes Absolute 0.02 #; Lymphocytes # 1.4 10*3/uL (1.4-4.0); Lymphocytes % 19.4 % (21.2-54.2); Mean Corpuscular HGB Conc 32.1 GM/DL (32-36); Mean Corpuscular Hemoglobin 28 PG (27-34); Mean Platelet Volume 11.2 FL (9.6-12.0); Monocytes # 0.9 10*3/uL (0.11-0.8); Monocytes % 13.5 % (1.7-12.7); Neutrophils # 4.5 10*3/uL (1.4-7.4); Neutrophils % 65.1 % (38.7-73.9); Platelet Count 255 T/CUMM (130-400); Red Blood Count 3.15 MC/CUMM (3.8-5.5); Red Cell Distribution Width 16.8 % (9.3-17.3)
[2017-02-26 05:57] LABS: Magnesium 2.2 MG/DL (1.8-2.4); Potassium 3.4 MMOL/L (3.5-5.1)
[2017-02-26] MEDS: ALLOPURINOL 100 MG TABLET PO SCH (09:07)
[2017-02-26] MEDS: FUROSEMIDE 40 MG TABLET PO SCH (09:07)
[2017-02-26] MEDS: VALSARTAN 80 MG TABLET PO SCH (09:07)
--- NOTE | 2017-02-26 10:35 | Gastrointestinal Progress Note ---
Assessment and Plan - Time spent with patient Time spent with patient: Greater than 30 minutes (1) Gastrointestinal hemorrhage with melena Status: Acute Current Visit: Yes (2) Acute blood loss anemia Status: Acute Current Visit: Yes (3) Other specified counseling Status: Acute Current Visit: Yes Gastroenterology - PN: Subj Interval history: PLEASE NOTE -- automatic citation of patient information is unavoidable in this electronic note. I have made a reasonable effort to review the information cited , but it is not a part of my evaluation, impression, or recommendation unless specifically discussed in the dictated text that follows. As well, voice recognition software was used in the creation of this clinical note. Reasonable effort was made to identify and correct gross errors. Despite proofreading, errors in vehicle technician may be present, including nonsense verbiage at times. If you encounter such an error, please contact me at for discussion and correction. -- Cherise Chief complaint: melena Subjective: the patient is a 66-year-old male seen for follow-up of melena with post hemorrhagic anemia. The patient required two additional units of packed red blood cells yesterday. One bowel movement was reported overnight with no obvious blood. The patient is tolerating a clear liquid diet with no nausea or vomiting. Vital signs have remained stable. Medications: allopurinol, Lipitor, Lasix, Protonix, Diovan Review of Symptoms: 12 point review of symptoms was negative except as noted above Physical examination: Vital Signs: Current vital signs reviewed. General Appearance: lying in bed. Comfortable. No apparent distress. Head: Normocephalic. Eyes: no scleral icterus. No scleral injection. No conjunctival pallor. Oral Cavity: Odor of breath was normal. No drooling was observed. Lips showed no abnormalities. Lungs: Respiration rhythm and depth was normal. Cardiovascular: Heart rate and rhythm were normal. Abdomen: abdomen was not distended. Abdominal auscultation revealed no abnormalities. Ascites was not discovered. Abdominal palpation revealed no tenderness and no hepatosplenomegaly. Musculoskeletal System: musculoskeletal system was grossly normal. Neurological: level of consciousness was normal. Speech was normal. No coordination/cerebellum abnormalities were noted. Skin: Gen. appearance was normal. Color and pigmentation were normal. No skin lesions were appreciated. Laboratory: and hematocrit 23.5 --> transfusion --> 27.4, BUN 21, creatinine 1.0 Radiology: reviewed Impressions: 1. Gastrointestinal bleeding, indeterminate -- the patient has required a total of six units of packed red blood cells since admission. We will plan upper endoscopy tomorrow. If no finding, the patient may need to undergo further endoscopic evaluation. I will leave this to Dr. Hernandez's discretion. The patient should remain on proton pump inhibitor. 2. Post hemorrhagic anemia -- the patient has required transfusion but remained hemodynamically stable. As discussed, we will pursue endoscopic evaluation tomorrow. 3. Other specified counseling -- Patient seen for greater than 30 minutes. Greater than 50% of this time was spent counseling regarding differential diagnosis, likely diagnosis,, diagnostic and therapeutic options, risks, benefits, and alternatives to procedures and medications, informed consent, and plan of care generally. Patient has expressed understanding and wishes to proceed. Recommendations: -- aggressive crystalloid resuscitation -- serial hemoglobin and hematocrit monitoring -- transfusion as indicated -- upper endoscopy tomorrow -- if no finding, further endoscopic evaluation at Dr. Hernandez's discretion -- thank you for consultation. Dr. Hernandez will resume G.I. care for this patient tomorrow. Exam (Progress Note) - Constitutional Vitals: Period Temp Pulse Resp BP Sys/Martin Pulse Ox Last 24 Hr 96.7 F-99.1 F 88-105 16-20 105-144/55-79 96-98 Results - Labs CBC & BMP: 02/26/17 05:02 02/26/17 05:02
--- NOTE | 2017-02-26 11:06 | Cardiology Progress Note ---
Assessment and Plan (1) Carotid artery stenosis Status: Chronic Assessment and plan: SEE PLAN OF CARE LISTED BELOW. Current Visit: Yes (2) Chronic kidney disease, stage III (moderate) Status: Chronic Assessment and plan: SEE PLAN OF CARE LISTED BELOW. Current Visit: Yes (3) Hyperlipidemia Status: Chronic Assessment and plan: SEE PLAN OF CARE LISTED BELOW. Current Visit: Yes (4) Hypertension Status: Chronic Assessment and plan: SEE PLAN OF CARE LISTED BELOW. Current Visit: Yes (5) CAD (coronary artery disease) Status: Chronic Assessment and plan: SEE PLAN OF CARE LISTED BELOW. Current Visit: Yes (6) Acute blood loss anemia Status: Acute Assessment and plan: SEE PLAN OF CARE LISTED BELOW. Current Visit: Yes (7) CHF (congestive heart failure) Status: Chronic Assessment and plan: SEE PLAN OF CARE LISTED BELOW. Current Visit: Yes (8) Chronic anticoagulation Status: Chronic Assessment and plan: SEE PLAN OF CARE LISTED BELOW. Current Visit: Yes (9) Personal history of colonic polyps Status: Chronic Assessment and plan: SEE PLAN OF CARE LISTED BELOW. Current Visit: Yes Cardiology - PN: Subj Interval history: Patient is stable ambulatory without complaints related to chest pain. His counts are much improved with transfusion. He will continue his GI evaluation off of his anticoagulation currently. Exam (Progress Note) - Constitutional Vitals: Period Temp Pulse Resp BP Sys/Martin Pulse Ox Last 24 Hr 96.7 F-99.1 F 88-105 16-20 105-144/55-79 92-98 Exam: General:no acute distress. alert and oriented, mood and affect are normal HEENT: no new lesions, sclerae are clear, mouth and pharynx benign Neck: supple, trachea midline, no JVD noted Lungs: no rales ronchi or wheeze is noted. pt comfortable without accesory muscle use to assist with breathing CV: RRR no murmur rub or gallop is noted. Abd: soft and nontender, BSNA, no masses. Ext: no cyanosis, clubbing or edema Neuro: grossly intact without focal neurologic deficit. Result/EKG - Labs CBC & BMP: 02/26/17 05:02 02/26/17 05:02 Labs: Laboratory Results - last 24 hr 02/25/17 02/26/17 02/26/17 08:37 05:02 05:02 WBC 7.0 RBC 3.15 L Hgb 8.8 L Hct 27.4 L MCV 87.0 MCH 28 MCHC 32.1 RDW 16.8 Plt Count 255 MPV 11.2 Neut % (Auto) 65.1 Lymph % (Auto) 19.4 L Petroleum % (Auto) 13.5 H Eos % (Auto) 1.4 Baso % (Auto) 0.3 Neut # (Auto) 4.5 Lymph # (Auto) 1.4 Petroleum # (Auto) 0.9 H Eos # (Auto) 0.1 Baso # (Auto) 0.0 Immature Gran % 0.3 Nucleated RBC % 1.4 Immature Gran # 0.02 Nucleated RBCs # 0.10 Sodium 143 Potassium 3.4 L Chloride 107 Carbon Dioxide 27 Anion Gap 12.4 BUN 21 H Creatinine 1.00 GFR Calculation 91 BUN/Creatinine Ratio 21.00 H Glucose 88 Calculated Osmolality 286.0 Calcium 8.0 L Magnesium 2.2 Blood Type Cancelled Antibody Screen Cancelled Crossmatch See Detail Blood Bank Comment Cancelled
--- NOTE | 2017-02-26 12:58 | Hospitalist Progress Note ---
Assessment and Plan - Time spent with patient Time spent with patient: Greater than 30 minutes (1) Acute blood loss anemia Status: Acute Assessment and plan: Secondary to GI bleed. Continue transfusions for Hg <9. Scope monday. 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 Cardiology on board. Current Visit: Yes (3) CAD (coronary artery disease) Status: Chronic Assessment and plan: Holding antiplatelets. We will continue Lipitor. Current Visit: Yes Hospitalist: Subjective Interval history: No complaints or overnight events. Exam - Constitutional Vitals: Period Temp Pulse Resp BP Sys/Martin Pulse Ox Last 24 Hr 96.7 F-99.1 F 88-104 16-20 105-152/55-77 92-98 General appearance: no acute distress - Head Head exam: Present: normocephalic, atraumatic - Eye Eye exam: Present: EOMI Pupils: Present: CATHY - ENT ENT exam: Present: normal exam - Neck Neck exam: Present: normal inspection - Respiratory Respiratory exam: Present: clear to auscultation bilaterally. Absent: rhonchi, wheezes - Cardiovascular Cardiovascular exam: Present: regular rate and rhythm. Absent: gallop, rubs, systolic murmur - GI/Abdominal GI/Abdominal exam: Present: normal bowel sounds, soft. Absent: distended, firm , guarding, tenderness, rebound - Extremities Exam Extremities exam: Present: normal inspection. Absent: calf tenderness, edema Results - Labs CBC & BMP: 02/26/17 05:02 02/26/17 05:02 Lab Results: I have reviewed the past 24 hour labs
[2017-02-26] MEDS: ATORVASTATIN 80 MG TABLET PO SCH (20:41)
[2017-02-26] MEDS: PANTOPRAZOLE 40 MG VIAL IV SCH (20:41)
[2017-02-27 06:33] LABS: Basophils % 0.3 % (0.0-0.8); Eosinophils # 0.1 10*3/uL (0.0-0.87); Eosinophils % 1.1 % (0.00-10.9); Hematocrit 35.3 VOL% (42.0-52.0); Immature Granulocytes % 0.3 %; Immature Granulocytes Absolute 0.03 #; Lymphocytes % 22.4 % (21.2-54.2); Mean Corpuscular HGB Conc 31.2 GM/DL (32-36); Mean Corpuscular Hemoglobin 28 PG (27-34); Mean Corpuscular Volume 89.8 FL (87-102); Mean Platelet Volume 10.9 FL (9.6-12.0); Monocytes % 11.6 % (1.7-12.7); NRBC # 0.04 10*3/uL; Neutrophils # 5.6 10*3/uL (1.4-7.4); Neutrophils % 64.3 % (38.7-73.9); Platelet Count 306 T/CUMM (130-400); Red Blood Count 3.93 MC/CUMM (3.8-5.5); Red Cell Distribution Width 16.9 % (9.3-17.3); White Blood Count 8.7 T/CUMM (4-12)
[2017-02-27 07:00] LABS: Magnesium 2.4 MG/DL (1.8-2.4); Osmolality,Calculated 276.5 MOS/KG (273-304); Potassium 3.7 MMOL/L (3.5-5.1)
[2017-02-27] MEDS ORDERED: LIDOCAINE 2% 5 ML VIAL ONE (08:35)
[2017-02-27] MEDS ORDERED: ETOMIDATE 20 MG/10 ML VIAL IV ONE (08:35)
[2017-02-27] MEDS ORDERED: PROPOFOL 200 MG/20 ML VIAL IV ONE (08:35)
--- NOTE | 2017-02-27 08:50 | Operative Note ---
Date of procedure: 02/27/17 Pre-op diagnosis: Melena, drop in hematocrit to 23.5% now 35.3% posttransfusion Post-op diagnosis: other (I am not sure what produce this bleeding in this patient. If he has another bleed would consider immediate upper endoscopy in order to detect what source this is from however, this did not appear to be from variceal bleeding or gastric ulcer or AVMs that were detectable at this time. I suspect he may have had a Dieulafoy's lesion that can now not be visualized.) Procedure: PROCEDURE: Esophagogastroduodenoscopy (EGD) with cold biopsy for pathology REFERRING PHYSICIAN: Dr. Kelly Teixeira MD INDICATIONS: Hematocrit increase over the weekend from 23.5-->35.3%. The patient has received a total of 6 units of packed red blood cells. Melena the prior H&P was reviewed and interrim changes are as noted: No change from GI consultation 02/23/17 ENDOSCOPIST: Pernell Hernandez MD ENDOSCOPE: Olympus Video 100 System upper endoscope ASA CLASS: 3 EXAM: CV: regular rate and rhythm respiratory: Clear without wheezes abdominal: active bowel sounds MEDICATION: Per nursing anesthesia protocol, see their notes PROCEDURE: After discussion of the potential risks and benefits of upper endoscopy, the informed consent was obtained. The patient was then placed in the left lateral decubitus position where sedation was achieved as noted above. Esophageal intubation was performed without difficulty, and the endoscope was advanced through the esophagus, stomach and duodenum. A slow withdrawal was then performed with retroflexion in the stomach for careful inspection of the incisura angularis, fundus and cardia. The scope was then returned to a neutral position and withdrawn through the esophagus. The patient tolerated the procedure well and without complication. BIOPSIES: Gastric antrum/body PHOTOGRAPHS: Obtained FINDINGS: Hypopharynx and Larynx: Normal Esohagoscopy Upper and middle thirds: Normal, no gross evidence of varices Lower third normal, no gross evidence of varices Esophogastric junctions: No esophagitis, Banuelos's, or stricturing. Gastroscopy: Cardia/Fundus: 1 cm hiatal hernia noted, no gross evidence of gastroparesis Body: Very mild linear gastritis, biopsied Antrum and pylorus small submucosal nodule likely lipoma, biopsied on the surface, small sentinel fold noted just before the pyloric channel and some mild linear gastritis, biopsied no gross evidence of bleeding source Duodenoscopy: Bulb no evidence of blood or bleeding source, duodenum appeared normal Second and third portions: There was a diverticulum noted here which was sizable approximately 1.5 cm with a small piece of retained green being noted, no bleeding source was noted here or distally in the duodenum. IMPRESSION: I am not sure what produce this bleeding in this patient. If he has another bleed would consider immediate upper endoscopy in order to detect what source this is from however, this did not appear to be from variceal bleeding or gastric ulcer or AVMs that were detectable at this time. I suspect he may have had a Dieulafoy's lesion that can now not be visualized. RECOMMENDATIONS: Follow up for biopsy results in 1-2 weeks by phone [phone] Continue anti-gastroesophageal reflux measures (avoid carbonated and acidic beverages, avoid eating within 2 hours of bedtime, avoid tight fitting clothing , and elevate the front bed posts 6 inches prior to sleeping. If the patient has a sudden significant bleeding would definitely bring back to endoscopy on a more emergent basis to distinguish the source. We will feed and likely discharge later today or tomorrow after stability established. Pernell Hernandez MD COPY TO: Dr. Kelly Teixeira. Anesthesia: MAC Surgeon / Physician: Pernell Hernandez Estimated blood loss: minimal Specimens: other (Gastric antrum/body) Condition: stable Disposition: post procedure unit (G.I. Suite) Results - Labs CBC & BMP: 02/27/17 06:08 02/27/17 06:08 Discharge Plan - Discharge Medications No Action Polyethylene Glycol Powder [Miralax] 17 gm PO DAILY Allopurinol 200 mg PO DAILY Furosemide Tab [Lasix Tab] 40 mg PO DAILY Atorvastatin [Lipitor] 80 mg PO BEDTIME Apixaban [Eliquis] 5 mg PO BID Aspirin 81 mg PO DAILY Pantoprazole Tab [Protonix Tab] 40 mg PO DAILY Valsartan 40 mg PO DAILY Metoprolol Tartrate Tab [Lopressor Tab] 50 mg PO BID - Follow Up or Referral - Forms/Instructions
--- NOTE | 2017-02-27 08:57 | Anesthesia Post-Op ---
Anesthesia Post OP - Post Ansesthetic Evaluation Patient seen in post op: Yes Resp: within normal limits CV: within normal limits Mental: within normal limits Temp: within normal limits [id number]: within normal limits Nausea and Vomiting: within normal limits Pain: within normal limits
--- NOTE | 2017-02-27 08:58 | Gastrointestinal Progress Note ---
Assessment and Plan (1) Gastrointestinal hemorrhage with melena Status: Acute Assessment and plan: This patient was previously scoped back in 2013 when he was last placed on Eliquis and was having guaiac positive stools and hematocrit decreased down to 34%. His hematocrit is down to 14% this admission is now getting his fourth unit of blood. Unfortunately he cannot be taken to endoscopy this morning as he is already eaten solid food. We need to repeat the upper endoscopy on Monday in order to assess for an additional bleeding source and double check that this is not a cancer that is developed since last the patient was scoped in 2013. Helicobacter pylori negative gastritis was noted at that time, and the patient is been treated with Protonix twice daily ever since. We will look for AVMs and other bleeding sources as well as ruling out peptic ulcer disease and looking for cancer that might explain his level of anemia. I do not feel that with the colonoscopy done as recently as 2013 that is necessary to repeat the colonoscopy at this time. I will arrange for my on-call coverage to look in on this patient over the weekend to make sure he does not require emergency endoscopy in the interim. 02/27/17--The patient unfortunately blood similar to bleeding that occurred back in 2013 when last placed on Eliquis. He has received a total of 6 units of packed red blood cells over the weekend, dark stools have decreased and his hematocrit is up to 35%. He seems to be doing well. Upper endoscopy today demonstrated the following: Mild gastritis only without evidence of blood, there was an incidental duodenal diverticulum but no gross bleeding source in terms of ulcer, AVMs, cancer, erosions or other definable source. I am not sure what produce this bleeding in this patient. If he has another bleed would consider immediate upper endoscopy in order to detect what source this is from however, this did not appear to be from variceal bleeding or gastric ulcer or AVMs that were detectable at this time. I suspect he may have had a Dieulafoy' s lesion that can now not be visualized. Current Visit: Yes (2) Personal history of colonic polyps Status: Chronic Assessment and plan: The patient has a history of adenomas in the ascending and sigmoid regions of his colon. Blood loss for the rectum is noted to be black consistent with upper GI bleeding. I do not anticipate requiring a colonoscopy at this time, but upper endoscopy will be repeated on 02/27/17 at around 0700 in the morning. 02/27/17--I would personally leave this patient off of Eliquis, although aspirin appears to be okay considering his history. I do not anticipate requiring a repeat colonoscopy at this time. It is reasonable to watch this patient for stability once he is started on a solid diet and then perhaps discharge him later today or early tomorrow. Current Visit: Yes (3) Acute posthemorrhagic anemia Status: Acute Assessment and plan: Again, we are arranging for upper endoscopy to occur on 02/27/17 at 7 AM. The patient should be given Protonix in the interim twice daily, start MiraLAX to help out with his underlying constipation. Transfuse if the patient's hematocrit drops below your parameters. Risks of the procedure include but are not limited to: Bleeding, infection, perforation, cardiac and pulmonary compromise. Observe for stability over the weekend. 02/27/17--He appears to be stable at this time. Potential discharge later today or tomorrow. No clear source for the bleeding was identified. We may have to do immediate endoscopy should this happen again. This is 2 episodes of the same issue occurring after the patient has been started on Eliquis. We may wish to avoid this medication for the future. Current Visit: Yes Gastroenterology - PN: Subj Interval history: No further black stools, doing well with p.o. intake--hematocrit improved after getting a total of 6 units of packed red blood cells since admission. Currently hematocrit is up to 35%. Exam (Progress Note) - Constitutional Vitals: Period Temp Pulse Resp BP Sys/Martin Pulse Ox Last 24 Hr 97.8 F-98.3 F 86-100 10-20 121-152/62-85 94-99 General appearance: no acute distress - Eye Eye exam: Present: EOMI - Respiratory Respiratory exam: Present: clear to auscultation bilaterally - Cardiovascular Cardiovascular exam: Present: regular rate and rhythm - GI/Abdominal GI/Abdominal exam: Present: normal bowel sounds, soft. Absent: ascites, distended, rebound - Extremities Exam Extremities exam: Absent: edema - Neurological Exam Neurological exam: Present: alert, oriented X3 - Psychiatric Psychiatric exam: Present: normal affect, normal mood - Skin Skin exam: Present: warm Results - Labs CBC & BMP: 02/27/17 06:08 02/27/17 06:08
[2017-02-27] MEDS: ALLOPURINOL 100 MG TABLET PO SCH (09:53)
[2017-02-27] MEDS: VALSARTAN 80 MG TABLET PO SCH (09:54)
[2017-02-27] MEDS: FUROSEMIDE 40 MG TABLET PO SCH (09:54)
[2017-02-27] MEDS: PANTOPRAZOLE 40 MG VIAL IV SCH ×2 (09:56→20:42)
[2017-02-27 10:11] LABS: Hemoglobin 10.1 GM/DL (14.0-18.0)
[2017-02-27] MEDS ORDERED: BISACODYL 5 MG TABLET PO ONE (13:37)
--- NOTE | 2017-02-27 14:22 | Hospitalist Progress Note ---
Assessment and Plan - Time spent with patient Time spent with patient: Greater than 30 minutes (1) Acute blood loss anemia Status: Acute Assessment and plan: Secondary to GI bleed. Continue transfusions for Hg <9. Scope today showed no obvious source of bleeding. GI recommended holding Eliquis and may be continue aspirin and cardiology recommended continue Eliquis given the indication. This is somewhat of a difficult situation for the patient. Will restart the patient back on Eliquis and his aspirin and observe him overnight. 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 Cardiology on board. See above. Current Visit: Yes (3) CAD (coronary artery disease) Status: Chronic Assessment and plan: We will restart his medications. Current Visit: Yes Hospitalist: Subjective Interval history: Patient came back from the EGD. No obvious source of bleeding on the EGD. Patient states he has not had a bowel movements. Exam - Constitutional Vitals: Period Temp Pulse Resp BP Sys/Martin Pulse Ox Last 24 Hr 97.9 F-98.3 F 86-100 10-20 110-158/62-85 94-99 General appearance: no acute distress - Head Head exam: Present: normocephalic, atraumatic - Eye Eye exam: Present: EOMI Pupils: Present: CATHY - ENT ENT exam: Present: normal exam - Neck Neck exam: Present: normal inspection - Respiratory Respiratory exam: Present: clear to auscultation bilaterally. Absent: rhonchi, wheezes - Cardiovascular Cardiovascular exam: Present: regular rate and rhythm. Absent: gallop, rubs, systolic murmur - GI/Abdominal GI/Abdominal exam: Present: normal bowel sounds, soft. Absent: distended, firm , guarding, tenderness, rebound - Extremities Exam Extremities exam: Present: normal inspection. Absent: calf tenderness, edema Results - Labs CBC & BMP: 02/27/17 09:57 02/27/17 06:08 Lab Results: I have reviewed the past 24 hour labs
--- NOTE | 2017-02-27 14:24 | Cardiology Progress Note ---
Gianfranco Fam Vanessa, RN, am scribing for, and in the presence of, Ervin Davey MD 14:21. Assessment and Plan - Time spent with patient Time spent with patient: Greater than 30 minutes (1) Chronic anticoagulation Status: Chronic Assessment and plan: Eliquis and aspirin has been on hold since admission. Upper endoscopy findings reviewed. No gross source for bleeding. Would recommend restarting the Eliquis and aspirin unless there is another reason not to. It was felt that his high risk of GI bleeding this would be a reason to hold this and needs to be stated in the chart. Current Visit: Yes (2) Chronic kidney disease, stage III (moderate) Status: Chronic Assessment and plan: Creatinine has improved since admission and is currently 1.1 with GFR 81. Current Visit: Yes (3) Acute blood loss anemia Status: Acute Assessment and plan: Presented with severe anemia, H&H 5.5/17.4 on February 24. Has been transfused a total of 6 units PRBCs with last transfusion on February 25. Hematocrit has been stable the last couple days and is 32 today. Denies current melena. Etiology of this is really unclear. Certainly it may be some other GI source. Current Visit: Yes (4) Hypertension Status: Chronic Assessment and plan: Fairly well controlled. He has had systolic BPs in the 110s-158 range. Lopressor from home medications has not been restarted this admission. Current Visit: Yes (5) Carotid artery stenosis Status: Chronic Assessment and plan: Appears stable Current Visit: Yes (6) Hyperlipidemia Status: Chronic Assessment and plan: Statin has been continued. FLP this admission unremarkable. Current Visit: Yes (7) CAD (coronary artery disease) Status: Chronic Assessment and plan: Clinically, no findings for ACS at this time. Continue as present. Current Visit: Yes (8) CHF (congestive heart failure) Status: Chronic Assessment and plan: Clinically, he is well compensated without overt S/S of heart failure. Current Visit: Yes (9) Personal history of colonic polyps Status: Chronic Assessment and plan: Defer to gastroenterology. Current Visit: Yes Cardiology - PN: Subj Interval history: PRIMARY MATERIAL PLANNING ANALYST: DR. EVANS SUMMARY: Mr. Suarez is a 66-year-old white male risk factor significant for:age, hypertension, dyslipidemia, personal history and family history of premature CAD , and he is a former smoker. Past medical history includes apical thrombus, carotid artery disease with previous carotid artery endarterectomy. Patient has also undergone previous coronary artery bypass grafting, CHF, ischemic cardiomyopathy with most recent ejection fraction of 13%, and he is status post AICD implant by Dr. Gonzalez. Patient was admitted directly from Dr. Evans is office after complaining of weakness, dizziness, and lightheadedness, and had been experiencing melena for approximately 2 weeks. Blood work revealed H& H 4.9/16.4. Cardiology was consulted to see patient as he has been on Eliquis therapy for history of LV thrombus now presenting with GI bleeding. Last dose of Eliquis was February 23. He has received a total of 6 units PRBCs. Gastroenterology has seen patient, and he has undergone upper endoscopy. February: Mr. Suarez is awake and alert this afternoon sitting up in the side of the bed. He underwent EGD this morning per Dr. Hernandez, and there was no acute bleeding source noted. Dieualfoy's lesion suspected but unable to visualize. Recommendations noted. No chest pain or shortness of breath. No significant lower extremity edema, and he is not having any orthopnea or PND. Denies abdominal pain or further melena. Labs reviewed. H&H 11.0/35.3, K+ 3.7, MG+ 2.4, creatinine 1.1. Systolic BP 125 260 mmHg. nurse monitoring shows sinus rhythm. Occasional PVCs noted, and earlier this morning, noted to have short episode of nonsustained VT.. The plan is for him to be discharged tomorrow after he has been restarted on his Eliquis and aspirin. Since this patient has no findings of acute GI bleed other than by history and no bleeding source on EGD I think is appropriate with his history and other findings that he be restarted his Eliquis and aspirin. If there is a reason but he cannot be restarted on these then I can be held. Exam (Progress Note) - Constitutional Vitals: Period Temp Pulse Resp BP Sys/Martin Pulse Ox Last 24 Hr 97.9 F-98.3 F 86-100 10-20 110-158/62-85 94-99 Exam: General: Present: Other (overweight). No acute distress. HEENT: Present: PERRL, Normocephaly, Mucus Membranes Moist Neck: Present: Supple Neck, Midline Trachea, No JVD/HJR, No Masses, No Bruit Cardiac: Present: Reg Rate and Rhythm, No Murmur Lungs: Present: Clear Ascult./Percussion, No Wheeze, Rales, Rhonchi Neuro: Present: Grossly Intact. Absent: Numbness, Weakness, Resting Tremor, Essential Tremor Abdomen: Present: Soft, Active Bowel Sounds, No Masses, No Pulsations/Bruits. Absent: Firm, no tenderness. Skin: Present: Clear. Absent: Rash, Suspicious Lesions Musculoskeletal: Present: Normal Range of Motion Extremities: Present: No Clubbing, No Cyanosis, no peripheral edema, Capillary Refill (normal) Result/EKG - Labs CBC & BMP: 02/27/17 09:57 02/27/17 06:08 Lab Results: I have reviewed the past 24 hour labs Labs: Laboratory Results - last 24 hr 02/27/17 02/27/17 02/27/17 06:08 06:08 09:57 WBC 8.7 RBC 3.93 D Hgb 11.0 L D 10.1 L Hct 35.3 L 32.0 L MCV 89.8 MCH 28 MCHC 31.2 L RDW 16.9 Plt Count 306 MPV 10.9 Neut % (Auto) 64.3 Lymph % (Auto) 22.4 Pierce % (Auto) 11.6 Eos % (Auto) 1.1 Baso % (Auto) 0.3 Neut # (Auto) 5.6 Lymph # (Auto) 2.0 Pierce # (Auto) 1.0 H Eos # (Auto) 0.1 Baso # (Auto) 0.0 Immature Gran % 0.3 Nucleated RBC % 0.5 Immature Gran # 0.03 Nucleated RBCs # 0.04 Sodium 139 Potassium 3.7 Chloride 100 Carbon Dioxide 27 Anion Gap 15.7 H BUN 16 Creatinine 1.10 GFR Calculation 81 BUN/Creatinine Ratio 14.00 Glucose 74 Calculated Osmolality 276.5 Calcium 9.0 Magnesium 2.4 - Diagnostic Findings Procedure: Chest x-ray: image reviewed by me, report reviewed by me - EKG EKG results: interpreted by me, no acute changes EKG shows: sinus rhythm IPetar John Timothy, MD, personally performed the services described in this documentation, ascribed by Gianfranco,Kalyn, RN in my presence, and it is both accurate and complete .
[2017-02-27] MEDS: ASPIRIN EC 81 MG TABLET PO SCH (15:35)
[2017-02-27] MEDS: ATORVASTATIN 80 MG TABLET PO SCH (20:41)
[2017-02-27] MEDS: APIXABAN 5 MG TABLET PO SCH (20:41)
[2017-02-27 21:14] LABS: Hematocrit 32.1 VOL% (42.0-52.0); Hemoglobin 10.2 GM/DL (14.0-18.0)
[2017-02-28 06:31] LABS: Basophils % 0.3 % (0.0-0.8); Eosinophils # 0.1 10*3/uL (0.0-0.87); Eosinophils % 1.4 % (0.00-10.9); Hematocrit 30.4 VOL% (42.0-52.0); Hemoglobin 9.6 GM/DL (14.0-18.0); Immature Granulocytes % 0.5 %; Immature Granulocytes Absolute 0.03 #; Lymphocytes # 1.5 10*3/uL (1.4-4.0); Lymphocytes % 23.5 % (21.2-54.2); Mean Corpuscular HGB Conc 31.6 GM/DL (32-36); Mean Corpuscular Hemoglobin 28 PG (27-34); Mean Corpuscular Volume 88.6 FL (87-102); Mean Platelet Volume 10.9 FL (9.6-12.0); Monocytes # 0.8 10*3/uL (0.11-0.8); Monocytes % 12.6 % (1.7-12.7); Neutrophils % 61.7 % (38.7-73.9); Platelet Count 286 T/CUMM (130-400); Red Blood Count 3.43 MC/CUMM (3.8-5.5); White Blood Count 6.5 T/CUMM (4-12)
--- NOTE | 2017-02-28 06:46 | Gastrointestinal Progress Note ---
Assessment and Plan (1) Gastrointestinal hemorrhage with melena Status: Acute Assessment and plan: This patient was previously scoped back in 2013 when he was last placed on Eliquis and was having guaiac positive stools and hematocrit decreased down to 34%. His hematocrit is down to 14% this admission is now getting his fourth unit of blood. Unfortunately he cannot be taken to endoscopy this morning as he is already eaten solid food. We need to repeat the upper endoscopy on Monday in order to assess for an additional bleeding source and double check that this is not a cancer that is developed since last the patient was scoped in 2013. Helicobacter pylori negative gastritis was noted at that time, and the patient is been treated with Protonix twice daily ever since. We will look for AVMs and other bleeding sources as well as ruling out peptic ulcer disease and looking for cancer that might explain his level of anemia. I do not feel that with the colonoscopy done as recently as 2013 that is necessary to repeat the colonoscopy at this time. I will arrange for my on-call coverage to look in on this patient over the weekend to make sure he does not require emergency endoscopy in the interim. 02/27/17--The patient unfortunately blood similar to bleeding that occurred back in 2013 when last placed on Eliquis. He has received a total of 6 units of packed red blood cells over the weekend, dark stools have decreased and his hematocrit is up to 35%. He seems to be doing well. Upper endoscopy today demonstrated the following: Mild gastritis only without evidence of blood, there was an incidental duodenal diverticulum but no gross bleeding source in terms of ulcer, AVMs, cancer, erosions or other definable source. I am not sure what produce this bleeding in this patient. If he has another bleed would consider immediate upper endoscopy in order to detect what source this is from however, this did not appear to be from variceal bleeding or gastric ulcer or AVMs that were detectable at this time. I suspect he may have had a Dieulafoy' s lesion that can now not be visualized. 02/28/17--I do note that over the last 1 day this patient's hematocrit has dropped from 35.3 down to 30.4 and he has not had any further bowel movements to see whether or not his melena is continuing. He is gotten some Dulcolax this morning and is about to get his MiraLAX as well. If this patient had a nonbranching arterial they came to the surface of the fundus for example that vessel and produce intermittent bleeding under the right circumstances this would be a Dieulafoy's lesion. I remain suspicious that this may be the cause for the patient's intermittent high volume bleeding given his hematocrit dropped to 14.7% earlier in the admission, and the fact that his endoscopy appears relatively normal in the face of his melena. I note that this is the second time that he has bled when placed on Eliquis. If he begins to bleed in a very florid fashion we need to perform upper endoscopy immediately in order to reassess the patient especially if he is going to be started back on his Eliquis. He seems to do well off of Eliquis on just his aspirin prior to this bleeding episode, although I am aware that this is not the standard of care given his Cardiologic issues. My suggestion would be to do recheck his hematocrit after he leaves the hospital today in another week and I will follow him up in 4-6 weeks. I will sign off at this time, thank you for the opportunity see this very pleasant patient. Current Visit: Yes (2) Personal history of colonic polyps Status: Chronic Assessment and plan: The patient has a history of adenomas in the ascending and sigmoid regions of his colon. Blood loss for the rectum is noted to be black consistent with upper GI bleeding. I do not anticipate requiring a colonoscopy at this time, but upper endoscopy will be repeated on 02/27/17 at around 0700 in the morning. 02/27/17--I would personally leave this patient off of Eliquis, although aspirin appears to be okay considering his history. I do not anticipate requiring a repeat colonoscopy at this time. It is reasonable to watch this patient for stability once he is started on a solid diet and then perhaps discharge him later today or early tomorrow. 02/28/17--No need for colonoscopy repeat. If a repeat upper endoscopy during a florid bleeding episode does not show any cause for the blood loss, a capsule endoscopy may be required. Current Visit: Yes (3) Acute posthemorrhagic anemia Status: Acute Assessment and plan: Again, we are arranging for upper endoscopy to occur on 02/27/17 at 7 AM. The patient should be given Protonix in the interim twice daily, start MiraLAX to help out with his underlying constipation. Transfuse if the patient's hematocrit drops below your parameters. Risks of the procedure include but are not limited to: Bleeding, infection, perforation, cardiac and pulmonary compromise. Observe for stability over the weekend. 02/27/17--He appears to be stable at this time. Potential discharge later today or tomorrow. No clear source for the bleeding was identified. We may have to do immediate endoscopy should this happen again. This is 2 episodes of the same issue occurring after the patient has been started on Eliquis. We may wish to avoid this medication for the future. 02/28/17--suggest discharged today with follow-up hematocrit in [address] Evans whether he wants to continue on the Eliquis as an outpatient, should his hematocrit dropped again. Current Visit: Yes Exam (Progress Note) - Constitutional Vitals: Period Temp Pulse Resp BP Sys/Martin Pulse Ox Last 24 Hr 96.6 F-98.5 F 86-100 10-34 97-158/55-85 93-98 Results - Labs CBC & BMP: 02/28/17 05:16 02/27/17 06:08
[2017-02-28] MEDS ORDERED: POLYETHYLENE GLYCOL POWDER 17 GM PACK PO SCH (09:00)
[2017-02-28] MEDS: FUROSEMIDE 40 MG TABLET PO SCH (09:21)
[2017-02-28] MEDS: VALSARTAN 80 MG TABLET PO SCH (09:21)
[2017-02-28] MEDS: ALLOPURINOL 100 MG TABLET PO SCH (09:21)
[2017-02-28] MEDS: APIXABAN 5 MG TABLET PO SCH (09:21)
[2017-02-28 09:22] LABS: Hematocrit 31.6 VOL% (42.0-52.0)
[2017-02-28] MEDS: ASPIRIN EC 81 MG TABLET PO SCH (09:22)
[2017-02-28] MEDS: PANTOPRAZOLE 40 MG VIAL IV SCH (09:25)
--- NOTE | 2017-02-28 11:22 | Pathology Report from [facility] ---
[facility] ACCESSION # : [id number] PATIENT NAME : Sarah Suarez ORDERING DR : Pernell Hernandez MD CLINICAL HX: GI bleed POST-OP DX: Same SPECIMEN INFO: YULIANA GROSS DESCRIPTION: Received in formalin labeled SARAH SUAREZ is a 0.5 x 0.2 cm aggregate of bacon tissue submitted in one cassette. DIAGNOSIS FOR SARAH SUAREZ: GASTRIC BIOPSIES: Mild chronic antral gastritis. H. pylori not seen on special stain. COLLECTED DATE: 02/27/2017 [facility] REPORT DATE: 02/28/2017 ELECTRONICALLY SIGNED BY: Arley Eller M.D. 02/28/2017 - 9:50:05 MTDShaheen
--- NOTE | 2017-02-28 11:35 | Physician Query Form ---
CLICK EDIT DOCUMENT TO SELECT QUERY ANSWER --> OK --> SIGN Maeev Montanez RN, CCDS Certified Clinical Button Decorating Machine Operator W) [phone] (f) [phone] [email or web address] PROVIDERS: Make your selection(s) from the choices in EACH section by typing an "x" and enter comments in the comment section. Please use your independent medical judgment in providing your response. This request does not imply that any particular answer is desired or expected. CLINICAL INDICATORS: (Providers should not edit this section) Patient was admitted with melena, "weak", "dizzy", "lightheaded", BP of 91/55, "dark stool for the last 2 weeks", and the patient is on Eliquis. Based on the above, could you clarify the appropriate diagnosis, if significant , that supports the above abnormalities and additional evaluation, monitoring, and/or treatment rendered: ( ) GI bleeding is thought to be due to ( x) GI bleeding is thought to be due to the Eliquis ( ) GI bleeding is thought to be unrelated to the Eliquis ( ) Other, please specify: ( ) Clinically unable to determine COMMENTS: PLEASE ALSO DOCUMENT RESPONSE IN PROGRESS NOTES AND/OR DISCHARGE SUMMARY Use of terms such as suspected, likely, or probable (associated with a specific diagnosis that is being evaluated, monitored, or treated as if it exists) are acceptable and can be restated in the discharge summary if not ruled out. MTDD
[2017-02-28 11:41] VITALS: BP 116/57
--- NOTE | 2017-02-28 13:57 | Discharge Summary ---
Hospital Course - Hospital Course Hospital Course: Mr. Suarez was admitted for evaluation and management of anemia with a history of 2 weeks of melena. Patient has a history significant for LV thrombus with which she is taking Eliquis for and seen by Dr. Evans over cardiology. Once admitted to the hospital the patient was transfused and required a total of 6 units packed red blood cells. Eliquis and aspirin was held. Patient had no recurrence of melena while hospitalized due to the lack of bowel movement. He was seen by gastroenterology and cardiology. Gastroenterology performed an upper endoscopy which revealed no obvious source of bleeding. Colonoscopy was not indicated. Cardiology recommended patient continue Eliquis and aspirin. Gastroenterology recommended the patient discontinue Eliquis. I spoke with the patient and decision was made to continue Eliquis for the time being. He understands that he may redevelop melena and anemia and be hospitalized. This is unfortunately a very difficult situation however the risks of discontinuing Eliquis outweigh the benefits at this time. Patient will be discharged and follow-up with Dr. Hernandez in 4 weeks with blood to be drawn in 1 week and followed up by Dr. Hernandez. He will also follow-up with his termite helper. I will prescribe ferrous sulfate and docusate sodium. His pantoprazole has been increased to twice daily. By discharge patient had met maximum benefit of hospitalization. I spent 38 minutes coordinating this discharge. - Time spent with patient Time with patient DS: Greater than 30 minutes Diagnosis - Discharge Diagnosis (1) Acute blood loss anemia Status: Acute (2) Chronic anticoagulation Status: Chronic (3) CAD (coronary artery disease) Status: Chronic Discharge Plan - Discharge Data Disposition: Disch To Home/Self Care Condition at Discharge: Stable Discharge Diet: advance to your usual diet Activity: resume usual activities as tolerated - Discharge Medications New Ferrous Sulfate Tab [Feosol Original Tab] 325 mg PO BID #60 tablet Docusate Sodium 100 mg PO BID #60 capsule Continue Polyethylene Glycol Powder [Miralax] 17 gm PO DAILY Allopurinol 200 mg PO DAILY Furosemide Tab [Lasix Tab] 40 mg PO DAILY Atorvastatin [Lipitor] 80 mg PO BEDTIME Apixaban [Eliquis] 5 mg PO BID Aspirin 81 mg PO DAILY Valsartan 40 mg PO DAILY Metoprolol Tartrate Tab [Lopressor Tab] 50 mg PO BID Changed Pantoprazole Tab [Protonix Tab] 40 mg PO BID #60 tablet - Follow Up or Referral Follow Up: Pernell Hernandez MD [Physician] - 1 Month Orquidea Evans MD [Physician] - 1 Month - Forms/Instructions Exam - Constitutional Vitals: Period Temp Pulse Resp BP Sys/Martin Pulse Ox Last 24 Hr 96.6 F-98.5 F 86-99 16-34 97-157/55-86 93-98 General appearance: normal weight, no acute distress Discharge Results Procedures and tests throughout hospitalization: Pending Orders 02/28/17 21:00 Hemoglobin and Hematocrit Q12H Labs on day of discharge: Labs from last 24 hours 02/28/17 02/28/17 02/27/17 08:48 05:16 20:45 WBC 6.5 RBC 3.43 L Hgb 10.0 L 9.6 L 10.2 L Hct 31.6 L 30.4 L 32.1 L MCV 88.6 MCH 28 MCHC 31.6 L RDW 17.0 Plt Count 286 MPV 10.9 Neut % (Auto) 61.7 Lymph % (Auto) 23.5 [place] % (Auto) 12.6 Eos % (Auto) 1.4 Baso % (Auto) 0.3 Neut # (Auto) 4.0 Lymph # (Auto) 1.5 [place] # (Auto) 0.8 Eos # (Auto) 0.1 Baso # (Auto) 0.0 Immature Gran % 0.5 Nucleated RBC % 0.0 Immature Gran # 0.03 Nucleated RBCs # 0.00 DS: Provider Date of admission: 02/23/17 15:25 Primary care physician: Vesna Goldstein MD Attending physician on admission: Kelly Teixeira MD Consults: 02/27/17 06:00 Consult to Anesthesiology [CONS] Routine Consulting Provider: Reason for Anesthesiology: Pre-op Clearance Discharging clinician: Kelly Teixeira MD Expected date of discharge: 02/28/17
== END 2017-02-28 15:45 | disposition home or self-care (01) | DRG 813 ==
LOC: N.4E
PROVIDERS: ADMIT Internal Medicine; ATTEND Internal Medicine